=== PATIENT | female | born 1970 | race Caucasian/White ===

== ENCOUNTER → 2021-05-08 12:30 | Outpatient (CLI) | payer BC, SELFPAY ==
--- NOTE | ~2021-05-08 | US_ITS ---
EXAMINATION: US pelvic complete w TV DATE: 05/08/2021 13:23 INDICATION: Menopausal and female climacteric states. TECHNIQUE: Multiple transabdominal and transvaginal sonographic images of the pelvis were obtained. COMPARISON: None. FINDINGS: TRANSABDOMINAL ULTRASOUND: The uterus measures 14.4 x 6.3 x 0.4 cm. The right ovary measures 3.4 x 2.7 x 4.3 cm. The left ovary measures 2.1 x 1.9 x 2.8 cm. There is no free fluid in the pelvis. TRANSVAGINAL ULTRASOUND: The endometrial complex measures 2.4 cm in thickness. IMPRESSION: 1. Thickened endometrial complex measuring 2.4 cm. The differential diagnosis includes endometrial hy perplasia, polyp, and carcinoma. Reviewed, dictated and finalized at location E. CARE ADMINISTRATOR IMPRESSION: 1. Thickened endometrial complex measuring 2.4 cm. The differential diagnosis i ncludes endometrial hyperplasia, polyp, and carcinoma.
== END ==
PROVIDERS: Visit Provider Nurse Practitioner Family
DX: N92.4 Excessive bleeding in the premenopausal period (principal); R93.89 Abnormal findings on diagnostic imaging of other specified body structures
CPT/HCPCS: 76830; 76856